=== PATIENT | female | born 1965 | race Caucasian/White ===

== ENCOUNTER 2018-01-25 17:05 | Emergency (ER) | payer OTHER ==
[~2018-01-25] VITALS: Ht 165.1 cm; Wt 99.3 kg
[2018-01-25] MEDS ORDERED: PRED10 PO (18:16)
[2018-01-25] MEDS ORDERED: CLON.1 PO (18:24)
[2018-01-25] MEDS ORDERED: ALBU90OI61 INH ×2 (18:24→18:29)
[2018-01-25] MEDS ORDERED: ADVAIR DISKU AER 500 (18:25)
== END 2018-01-25 18:59 | disposition home or self-care (01) ==
LOC: ER 17:05
DX: J45.901 Unspecified asthma with (acute) exacerbation (principal); F17.210 Nicotine dependence, cigarettes, uncomplicated
CPT/HCPCS: 94644; 99285-25